=== PATIENT | male | born 1985 | race Caucasian/White ===

== ENCOUNTER 2019-12-03 06:36 | Inpatient (IN) | payer MEDICAID, OTHER ==
[~2019-12-03] VITALS: Ht 180.3 cm; Wt 112.1 kg
[2019-12-03] MEDS ORDERED: MORPHINE SULFATE 4 MG/ML CPJ (NOT FOR IM USE) IV STA (07:24)
[2019-12-03] MEDS ORDERED: SODIUM CHLORIDE 0.9% 1,000 ML IV ONE (07:24)
[2019-12-03] MEDS ORDERED: ONDANSETRON HCL 4MG/2ML INJ IV STA (07:24)
[2019-12-03] MEDS ORDERED: SODIUM CHLORIDE 0.9% 1000ML BAG (SEPSIS BOLUS) IV ONE (07:30)
[2019-12-03 07:44] LABS: HEMATOCRIT. 46.1 % (42.0-52.0); HEMOGLOBIN. 16.2 g/dL (14.0-18.0); MEAN CORPUSCULAR HEMOGLOBIN 28.9 pg (28.0-32.0); MEAN CORPUSCULAR VOLUME 82.4 fL (80.0-94.0); MEAN PLATELET VOLUME 8.6 fl (7.4-10.4); PLATELET 416 x1000/uL (130-400)
[2019-12-03 07:54] LABS: CHLORIDE 96 mEq/L (98-107)
[2019-12-03 07:54] LABS: CLARITY URINE TURBID (CLEAR); COLOR URINE ORANGE (YELLOW); KETONES URINE 1+ (NEGATIVE); LEUKOCYTE ESTERASE URINE 1+ (NEGATIVE); NITRITE URINE POSITIVE (NEGATIVE); OCCULT BLOOD URINE 1+ (NEGATIVE); PH URINE 5.5 (4.5-8.0); PROTEIN URINE 3+ (NEGATIVE); SPECIFIC GRAVITY URINE 1.038 (1.005-1.030)
[2019-12-03] MEDS ORDERED: PIPERACILLIN/TAZ 3.375G PREMIX 50 ML IV ONE (08:15)
[2019-12-03 08:34] LABS: PLATELET ESTIMATE SLIGHTLY INCREASED
[2019-12-03] MEDS ORDERED: POTASSIUM CHLORIDE 20MEQ TABLET SR PO ONE (09:00)
[2019-12-03 09:02] LABS: D-DIMER 2.22 mg/L FEU (<0.50); INR 1.1; PROTHROMBIN TIME 11.3 sec (9.6-11.0)
[2019-12-03] MEDS ORDERED: IOHEXOL-300 100 ML BOTTLE ONE (09:47)
[2019-12-03] MEDS ORDERED: PIPERACILLIN/TAZ 3.375G PREMIX 50 ML IV SCH (11:15)
[2019-12-03] MEDS ORDERED: DIPHENHYDRAMINE 50MG/ML VIAL IV PRN (11:15)
[2019-12-03] MEDS ORDERED: ONDANSETRON HCL 4MG/2ML INJ IV PRN (11:15)
[2019-12-03] MEDS ORDERED: CLONIDINE 0.1MG TABLET PO PRN (11:15)
[2019-12-03 11:35] LABS: PHOSPHORUS 1.6 mg/dL (2.5-4.9)
[2019-12-03] MEDS ORDERED: IPRATROPIUM/ALBUTEROL 0.5-3(2.5)MG/3ML NEB HHN PRN (12:00)
[2019-12-03] MEDS: SODIUM CHLORIDE 0.9% 1,000 ML IV SCH (14:25)
[2019-12-03] MEDS: MORPHINE SULFATE 2 MG/ML CPJ (NOT FOR IM USE) IV PRN (15:47)
[2019-12-03] MEDS ORDERED: PIPERACILLIN/TAZOBACTAM 3.375 G in DEXT 5% WATER 100 ML IV SCH (17:00)
[2019-12-03 21:30] VITALS: BP 129/67
[2019-12-04] VITALS: BP 139/86
[2019-12-04] MEDS: PIPERACILLIN/TAZOBACTAM 3.375 G in DEXT 5% WATER 100 ML IV SCH ×3 (02:25→17:17)
[2019-12-04 04:00] VITALS: BP 113/74
[2019-12-04 05:14] LABS: HEMATOCRIT. 38.3 % (42.0-52.0); HEMOGLOBIN. 13.2 g/dL (14.0-18.0); MEAN CORPUSCULAR HEMOGLOBIN 28.4 pg (28.0-32.0); MEAN CORPUSCULAR VOLUME 82.7 fL (80.0-94.0); MEAN PLATELET VOLUME 8.2 fl (7.4-10.4); PLATELET 337 x1000/uL (130-400); RED BLOOD CELL COUNT 4.63 mill/uL (4.7-6.1)
[2019-12-04] MEDS: ACETAMINOPHEN 325MG TABLET PO PRN ×2 (05:48→19:46)
[2019-12-04 06:13] LABS: CHLORIDE 101 mEq/L (98-107)
[2019-12-04 06:26] LABS: HDL CHOLESTEROL 10 mg/dL (40-59); LDL CHOLESTEROL 93 mg/dL (5-100)
[2019-12-04 08:00] VITALS: BP 114/72
[2019-12-04 14:25] LABS: PLATELET ESTIMATE NORMAL
[2019-12-04 16:00] VITALS: BP 122/77
[2019-12-04] MEDS: SODIUM CHLORIDE 0.9% 1,000 ML IV SCH ×2 (17:07→19:15)
[2019-12-04] MEDS ORDERED: KCL 20MEQ/100ML PREMIX 100 ML IV NR (18:30)
[2019-12-04 20:00] VITALS: BP 125/84
[2019-12-05] MEDS ORDERED: VANCOMYCIN 1500MG in DEXTROSE 5% WATER 250ML IV NR ×2
[2019-12-05] MEDS: FLUCONAZOLE 200 MG/100ML BAG 100 ML IV SCH ×2 (00:04→21:24)
[2019-12-05] MEDS: PIPERACILLIN/TAZOBACTAM 3.375 G in DEXT 5% WATER 100 ML IV SCH ×4 (00:05→18:01)
[2019-12-05] MEDS: MORPHINE SULFATE 2 MG/ML CPJ (NOT FOR IM USE) IV PRN (00:06)
[2019-12-05] MEDS ORDERED: DIATR MEGLU/DIATRIZOATE SOLN 30ML PO SCH (02:00)
[2019-12-05] MEDS: SODIUM CHLORIDE 0.9% 1,000 ML IV SCH ×3 (03:15→19:15)
[2019-12-05 04:00] VITALS: BP 112/68
[2019-12-05 06:10] LABS: HIV SCREEN 4G Non Reactive (Non Reactive)
[2019-12-05 06:11] LABS: BASOPHILS % 0.2 % (0.0-2.0); EOSINOPHILS % 0.9 % (0.0-5.0); HEMATOCRIT. 36.5 % (42.0-52.0); HEMOGLOBIN. 12.5 g/dL (14.0-18.0); LYMPHOCYTES % 7.8 % (20.0-50.0); MEAN CORPUSCULAR HEMOGLOBIN 28.5 pg (28.0-32.0); MEAN CORPUSCULAR VOLUME 83.2 fL (80.0-94.0); MEAN PLATELET VOLUME 7.8 fl (7.4-10.4); MONOCYTES % 12.1 % (2.0-8.0); PLATELET 323 x1000/uL (130-400); RED BLOOD CELL COUNT 4.38 mill/uL (4.7-6.1)
[2019-12-05 06:14] LABS: CHLORIDE 102 mEq/L (98-107)
[2019-12-05 06:20] LABS: PHOSPHORUS 2.3 mg/dL (2.5-4.9)
[2019-12-05 06:23] LABS: CREATINE KINASE 31 IU/L (39-308)
[2019-12-05] MEDS ORDERED: VANCOMYCIN 1,750 MG in DEXT 5% WATER 250 ML IV SCH (08:00)
[2019-12-05 08:16] VITALS: BP 108/63
[2019-12-05 12:00] VITALS: BP 135/74
[2019-12-05] MEDS: ACETAMINOPHEN 325MG TABLET PO PRN (14:32)
[2019-12-05] MEDS ORDERED: DIATR MEGLU/DIATRIZOATE SOLN 30ML PO NR (15:00)
[2019-12-05 16:00] VITALS: BP 129/64
[2019-12-05] MEDS ORDERED: POTASSIUM CHLORIDE INJ 40 MEQ in DEXT 5% WATER 250 ML IV SCH (17:00)
[2019-12-05] MEDS ORDERED: IOHEXOL-300 100 ML BOTTLE ONE (17:45)
[2019-12-05 20:00] VITALS: BP 137/86
[2019-12-05] MEDS: VANCOMYCIN 1500MG in DEXTROSE 5% WATER 250ML IV SCH (20:44)
[2019-12-05] MEDS: METRONIDAZOLE 500 MG PREMIX 100 ML IV SCH (23:28)
[2019-12-06] VITALS: BP 127/73
[2019-12-06] MEDS: PIPERACILLIN/TAZOBACTAM 3.375 G in DEXT 5% WATER 100 ML IV SCH ×5 (00:11→23:48)
[2019-12-06] MEDS: ACETAMINOPHEN 325MG TABLET PO PRN ×2 (00:50→05:05)
[2019-12-06] MEDS: SODIUM CHLORIDE 0.9% 1,000 ML IV SCH (03:20)
[2019-12-06 04:00] VITALS: BP 113/69
[2019-12-06] MEDS: METRONIDAZOLE 500 MG PREMIX 100 ML IV SCH ×3 (05:45→21:45)
[2019-12-06] MEDS ORDERED: SODIUM CHLORIDE 0.9% 1000ML BAG (SEPSIS BOLUS) IV NR (06:00)
[2019-12-06 06:06] LABS: CHLORIDE 105 mEq/L (98-107)
[2019-12-06 06:07] LABS: BASOPHILS % 0.3 % (0.0-2.0); EOSINOPHILS % 2.1 % (0.0-5.0); HEMATOCRIT. 38.9 % (42.0-52.0); HEMOGLOBIN. 13.5 g/dL (14.0-18.0); LYMPHOCYTES % 7.6 % (20.0-50.0); MEAN CORPUSCULAR HEMOGLOBIN 28.4 pg (28.0-32.0); MEAN CORPUSCULAR VOLUME 81.9 fL (80.0-94.0); MEAN PLATELET VOLUME 7.8 fl (7.4-10.4); MONOCYTES % 11.1 % (2.0-8.0); NEUTROPHILS % 78.9 % (40.0-76.0); PLATELET 444 x1000/uL (130-400); RED BLOOD CELL COUNT 4.75 mill/uL (4.7-6.1); RED CELL DISTRIBUTION WIDTH 14.7 % (11.6-14.6)
[2019-12-06] MEDS: VANCOMYCIN 1500MG in DEXTROSE 5% WATER 250ML IV SCH ×2 (06:32→15:24)
[2019-12-06 08:00] VITALS: BP 118/65
[2019-12-06] MEDS ORDERED: BUPIVACAINE HCL 0.5% (5MG/ML) 50ML ONE (09:44)
[2019-12-06] MEDS ORDERED: MORPHINE SULFATE 2 MG/ML CPJ (NOT FOR IM USE) IV PRN ×2 (10:15→12:30)
[2019-12-06] MEDS ORDERED: MORPHINE SULFATE 4 MG/ML CPJ (NOT FOR IM USE) IV PRN (10:15)
[2019-12-06] MEDS: ENOXAPARIN 30MG/0.3ML SYR SUBCUT SCH ×2 (10:30→20:40)
[2019-12-06] MEDS ORDERED: MIDAZOLAM HCL 2 MG/2 ML VIAL ONE (10:36)
[2019-12-06] MEDS ORDERED: PROPOFOL 200MG/20ML VIAL IV ONE (10:36)
[2019-12-06] MEDS ORDERED: FENTANYL CITRATE/PF 50MCG/ML 2ML VIAL ONE ×3 (10:36→12:03)
[2019-12-06] MEDS ORDERED: METOCLOPRAMIDE HCL 10MG/2ML VIAL ONE (10:37)
[2019-12-06] MEDS ORDERED: ALBUMIN HUMAN 12.5G/250ML (5%) IV ONE (10:37)
[2019-12-06] MEDS ORDERED: ONDANSETRON HCL 4MG/2ML INJ ONE (10:37)
[2019-12-06] MEDS ORDERED: GLYCOPYRROLATE 0.2 MG/ML 2ML VIAL ONE ×2 (10:37→12:16)
[2019-12-06] MEDS ORDERED: SUCCINYLCHOLINE CHLORIDE 200MG/10ML IV ONE (10:37)
[2019-12-06] MEDS ORDERED: LIDOCAINE HCL/PF 1% 10 MG/ML 5ML VIAL ONE (10:37)
[2019-12-06] MEDS ORDERED: ROCURONIUM BROMIDE 10MG/ML VIAL 5ML IV ONE ×2 (10:38→11:24)
[2019-12-06] MEDS ORDERED: HYDROMORPHONE HCL/PF 2MG/ML (OR) ONE (11:31)
[2019-12-06] MEDS ORDERED: NEOSTIGMINE METHYLSULFATE 1MG/ML 10 ML VIAL ONE (12:16)
[2019-12-06] MEDS ORDERED: SODIUM CHLORIDE 0.9% 1,000 ML IV ONE (12:27)
[2019-12-06] MEDS ORDERED: MEPERIDINE HCL/PF 25MG/ML CPJ IV PRN ×2 (12:30)
[2019-12-06] MEDS ORDERED: ONDANSETRON HCL 4MG/2ML INJ IV PRN (12:30)
[2019-12-06] MEDS ORDERED: ONDANSETRON INJ IV PRN (13:15)
[2019-12-06] MEDS ORDERED: DIPHENHYDRAMINE INJ IV PRN (13:15)
[2019-12-06] MEDS ORDERED: NALOXONE INJ IV PRN (13:15)
[2019-12-06] MEDS: HYDROMORPHONE HCL/PF 2MG/ML CPJ IV PRN ×3 (13:27→14:11)
[2019-12-06] MEDS: HYDROMORPHONE PCA 10MG/50ML IV PRN (13:30)
[2019-12-06 14:02] LABS: HEMOGLOBIN 13.5 g/dL (14.0-18.0); MEAN CORPUSCULAR HEMOGLOBIN 28.2 pg (28.0-32.0); MEAN CORPUSCULAR VOLUME 83.4 fL (80.0-94.0); PLATELET 549 x1000/uL (130-400); RED CELL DISTRIBUTION WIDTH 14.6 % (11.6-14.6)
[2019-12-06 14:09] LABS: CHLORIDE 107 mEq/L (98-107)
[2019-12-06 14:17] LABS: VANCOMYCIN TROUGH 11.1 ug/mL (5.0-10.0)
[2019-12-06 16:00] VITALS: BP 134/68
[2019-12-06] MEDS: DEXT 5%/0.45% NACL KCL 20MEQ/L 1,000 ML IV SCH ×2 (17:41→21:30)
[2019-12-06] MEDS ORDERED: POTASSIUM CHLORIDE INJ 40 MEQ in DEXT 5% WATER 250 ML IV NR ×2 (19:00→21:00)
[2019-12-06 20:00] VITALS: BP 123/73
[2019-12-06] MEDS: FLUCONAZOLE 200 MG/100ML BAG 100 ML IV SCH (20:40)
[2019-12-06] MEDS: VANCOMYCIN 2,000 MG in DEXT 5% WATER 500 ML IV SCH (22:05)
[2019-12-07 00:35] VITALS: BP 145/71
[2019-12-07 04:00] VITALS: BP 124/69
[2019-12-07] MEDS: VANCOMYCIN 2,000 MG in DEXT 5% WATER 500 ML IV SCH (06:35)
[2019-12-07] MEDS: PIPERACILLIN/TAZOBACTAM 3.375 G in DEXT 5% WATER 100 ML IV SCH ×3 (06:35→17:28)
[2019-12-07] MEDS: METRONIDAZOLE 500 MG PREMIX 100 ML IV SCH ×3 (06:35→21:03)
[2019-12-07 08:00] VITALS: BP 110/70
[2019-12-07] MEDS: DEXT 5%/0.45% NACL KCL 20MEQ/L 1,000 ML IV SCH (08:19)
[2019-12-07] MEDS: ENOXAPARIN 30MG/0.3ML SYR SUBCUT SCH ×2 (08:19→21:04)
[2019-12-07 10:57] LABS: HEMATOCRIT. 38.7 % (42.0-52.0); MEAN CORPUSCULAR HEMOGLOBIN 28.1 pg (28.0-32.0); MEAN CORPUSCULAR VOLUME 83.6 fL (80.0-94.0); MEAN PLATELET VOLUME 7.3 fl (7.4-10.4); PLATELET 473 x1000/uL (130-400); RED BLOOD CELL COUNT 4.63 mill/uL (4.7-6.1); RED CELL DISTRIBUTION WIDTH 14.9 % (11.6-14.6)
[2019-12-07 11:56] LABS: *AMPHETAMINES SCREEN URINE NEGATIVE (NEGATIVE); *BARBITURATES SCREEN URINE NEGATIVE (NEGATIVE); *BENZODIAZEPINES SCREEN URINE PRESUMTIVE POSITIVE (NEGATIVE); *COCAINE SCREEN URINE NEGATIVE (NEGATIVE); CANNABINOID URINE SCREEN NEGATIVE (NEGATIVE); METHADONE URINE SCREEN NEGATIVE (NEGATIVE); OPIATES URINE SCREEN PRESUMTIVE POSITIVE (NEGATIVE); PHENCYCLIDINE URINE SCREEN NEGATIVE (NEGATIVE)
[2019-12-07 12:00] VITALS: BP 122/70
[2019-12-07] MEDS: MICAFUNGIN 100 MG in SODIUM CHLORIDE 0.9% 100 ML IV SCH (13:50)
[2019-12-07 14:16] LABS: PLATELET ESTIMATE INCREASED
[2019-12-07] MEDS: DEXT 5%/0.9% NACL 1,000 ML IV SCH ×2 (14:50→21:04)
[2019-12-07 16:00] VITALS: BP 140/65
[2019-12-07 16:56] LABS: CLARITY URINE TURBID (CLEAR); COLOR URINE DARK YELLOW (YELLOW); KETONES URINE TRACE (NEGATIVE); LEUKOCYTE ESTERASE URINE 1+ (NEGATIVE); NITRITE URINE POSITIVE (NEGATIVE); OCCULT BLOOD URINE 2+ (NEGATIVE); PROTEIN URINE 2+ (NEGATIVE); SPECIFIC GRAVITY URINE 1.033 (1.005-1.030)
[2019-12-07 20:48] VITALS: BP 116/67
[2019-12-08] VITALS (8 sets, daily range): BP systolic 92–135; BP diastolic 49–92
[2019-12-08] MEDS: CEFEPIME 2,000 MG in DEXT 5% WATER 100 ML IV SCH (01:00)
[2019-12-08] MEDS: DEXT 5%/0.9% NACL 1,000 ML IV SCH ×3 (04:02→17:04)
[2019-12-08] MEDS: METRONIDAZOLE 500 MG PREMIX 100 ML IV SCH ×3 (05:39→21:42)
[2019-12-08 06:05] LABS: HEMATOCRIT. 30.5 % (42.0-52.0); HEMOGLOBIN. 10.3 g/dL (14.0-18.0); MEAN CORPUSCULAR HEMOGLOBIN 28.1 pg (28.0-32.0); MEAN CORPUSCULAR VOLUME 83.2 fL (80.0-94.0); MEAN PLATELET VOLUME 7.6 fl (7.4-10.4); PLATELET 392 x1000/uL (130-400); RED BLOOD CELL COUNT 3.66 mill/uL (4.7-6.1); RED CELL DISTRIBUTION WIDTH 14.6 % (11.6-14.6)
[2019-12-08 06:08] LABS: CHLORIDE 106 mEq/L (98-107)
[2019-12-08 06:14] LABS: PHOSPHORUS 4.7 mg/dL (2.5-4.9)
[2019-12-08 06:16] LABS: CREATINE KINASE 451 IU/L (39-308)
[2019-12-08] MEDS ORDERED: SODIUM CHLORIDE 0.9% 500 ML IV ONE (06:45)
[2019-12-08] MEDS ORDERED: SODIUM CHLORIDE 0.9% 500 ML IV SCH (07:00)
[2019-12-08] MEDS: HYDROMORPHONE PCA 10MG/50ML IV PRN (07:34)
[2019-12-08] MEDS: ENOXAPARIN 30MG/0.3ML SYR SUBCUT SCH (08:43)
[2019-12-08 11:02] LABS: NUCLEATED RED BLOOD CELLS 1 /100 WBC; PLATELET ESTIMATE NORMAL
[2019-12-08] MEDS: MICAFUNGIN 100 MG in SODIUM CHLORIDE 0.9% 100 ML IV SCH (14:00)
[2019-12-08] MEDS ORDERED: FUROSEMIDE 100MG/10ML VIAL IVP NR (18:00)
[2019-12-09] VITALS: BP 104/58
[2019-12-09 04:00] VITALS: BP 106/58
[2019-12-09] MEDS: METRONIDAZOLE 500 MG PREMIX 100 ML IV SCH ×3 (05:45→22:12)
[2019-12-09 07:47] LABS: HEMATOCRIT. 29.2 % (42.0-52.0); HEMOGLOBIN. 9.8 g/dL (14.0-18.0); MEAN CORPUSCULAR HEMOGLOBIN 28.1 pg (28.0-32.0); MEAN PLATELET VOLUME 7.5 fl (7.4-10.4); PLATELET 367 x1000/uL (130-400); RED BLOOD CELL COUNT 3.48 mill/uL (4.7-6.1)
[2019-12-09 07:53] LABS: PHOSPHORUS 5.3 mg/dL (2.5-4.9)
[2019-12-09] MEDS ORDERED: LIDOCAINE HCL 1% 20ML VIAL (Pyxis) INJ ONE (07:58)
[2019-12-09 08:00] VITALS: BP 112/67
[2019-12-09] MEDS: ENOXAPARIN 40MG/0.4ML SYR SUBCUT SCH (09:00)
[2019-12-09] MEDS ORDERED: HEPARIN 100 UNITS/1 ML VIAL IVF PRN (10:00)
[2019-12-09] MEDS: CEFEPIME 2,000 MG in DEXT 5% WATER 100 ML IV SCH (10:04)
[2019-12-09 12:00] VITALS: BP 117/65
[2019-12-09] MEDS: MICAFUNGIN 100 MG in SODIUM CHLORIDE 0.9% 100 ML IV SCH (13:53)
[2019-12-09 16:10] VITALS: BP 108/64
[2019-12-09 20:14] VITALS: BP 138/73
[2019-12-10] VITALS: BP 116/64
[2019-12-10 04:00] VITALS: BP 128/80
[2019-12-10] MEDS: METRONIDAZOLE 500 MG PREMIX 100 ML IV SCH ×3 (05:29→22:16)
[2019-12-10 07:00] LABS: BASOPHILS % 0.5 % (0.0-2.0); EOSINOPHILS % 3.8 % (0.0-5.0); HEMATOCRIT. 28.1 % (42.0-52.0); HEMOGLOBIN. 9.8 g/dL (14.0-18.0); LYMPHOCYTES % 9.8 % (20.0-50.0); MEAN CORPUSCULAR HEMOGLOBIN 29.1 pg (28.0-32.0); MEAN CORPUSCULAR VOLUME 83.9 fL (80.0-94.0); MEAN PLATELET VOLUME 7.3 fl (7.4-10.4); MONOCYTES % 9.7 % (2.0-8.0); NEUTROPHILS % 76.2 % (40.0-76.0); PLATELET 418 x1000/uL (130-400); RED BLOOD CELL COUNT 3.35 mill/uL (4.7-6.1); RED CELL DISTRIBUTION WIDTH 14.5 % (11.6-14.6)
[2019-12-10 08:00] VITALS: BP 128/72
[2019-12-10] MEDS: ENOXAPARIN 40MG/0.4ML SYR SUBCUT SCH (09:16)
[2019-12-10] MEDS: CEFEPIME 2,000 MG in DEXT 5% WATER 100 ML IV SCH (09:17)
[2019-12-10 10:08] LABS: PLATELET ESTIMATE NORMAL
[2019-12-10 12:00] VITALS: BP 140/86
[2019-12-10] MEDS: MICAFUNGIN 100 MG in SODIUM CHLORIDE 0.9% 100 ML IV SCH (12:29)
[2019-12-10 16:00] VITALS: BP 127/71
[2019-12-10] MEDS: CEFAZOLIN 2,000 MG in DEXT 5% WATER 100 ML IV SCH (16:54)
[2019-12-10 20:00] VITALS: BP 148/83
[2019-12-11 06:52] LABS: HEMATOCRIT. 27.1 % (42.0-52.0); HEMOGLOBIN. 9.4 g/dL (14.0-18.0); MEAN CORPUSCULAR HEMOGLOBIN 29.2 pg (28.0-32.0); MEAN CORPUSCULAR VOLUME 84.3 fL (80.0-94.0); MEAN PLATELET VOLUME 7.4 fl (7.4-10.4); PLATELET 407 x1000/uL (130-400); RED BLOOD CELL COUNT 3.21 mill/uL (4.7-6.1); RED CELL DISTRIBUTION WIDTH 14.6 % (11.6-14.6)
[2019-12-11 07:17] LABS: PHOSPHORUS 6.1 mg/dL (2.5-4.9)
[2019-12-11 08:00] VITALS: BP 142/79
[2019-12-11] MEDS: ENOXAPARIN 40MG/0.4ML SYR SUBCUT SCH (09:56)
[2019-12-11] MEDS: ONDANSETRON HCL 4MG/2ML INJ IV PRN (10:42)
[2019-12-11 11:14] LABS: PLATELET ESTIMATE SLIGHTLY INCREASED
[2019-12-11] MEDS ORDERED: HEPARIN SODIUM 1,000 UNIT/1ML VIAL IV SCH (11:45)
[2019-12-11 12:03] VITALS: BP 132/74
[2019-12-11] MEDS: MICAFUNGIN 100 MG in SODIUM CHLORIDE 0.9% 100 ML IV SCH (12:56)
[2019-12-11] MEDS ORDERED: HYDROCODONE/ACETAMINOPHEN 5/325MG TABLET PO PRN (13:30)
[2019-12-11] MEDS ORDERED: HYDROMORPHONE HCL/PF 2MG/ML CPJ IV PRN (13:30)
[2019-12-11 16:00] VITALS: BP 136/79
[2019-12-11] MEDS: CEFAZOLIN 2,000 MG in DEXT 5% WATER 100 ML IV SCH (18:02)
[2019-12-11 20:00] VITALS: BP 131/75
[2019-12-12] VITALS: BP 134/80
[2019-12-12 04:00] VITALS: BP 129/80
[2019-12-12 06:00] LABS: BASOPHILS % 0.5 % (0.0-2.0); EOSINOPHILS % 3.4 % (0.0-5.0); HEMATOCRIT. 26.4 % (42.0-52.0); HEMOGLOBIN. 9.2 g/dL (14.0-18.0); LYMPHOCYTES % 10.2 % (20.0-50.0); MEAN CORPUSCULAR HEMOGLOBIN 28.7 pg (28.0-32.0); MEAN CORPUSCULAR VOLUME 82.1 fL (80.0-94.0); MEAN PLATELET VOLUME 7.6 fl (7.4-10.4); NEUTROPHILS % 76.9 % (40.0-76.0); PLATELET 425 x1000/uL (130-400); RED BLOOD CELL COUNT 3.22 mill/uL (4.7-6.1); RED CELL DISTRIBUTION WIDTH 13.9 % (11.6-14.6)
[2019-12-12 08:00] VITALS: BP 119/75
[2019-12-12] MEDS: ENOXAPARIN 40MG/0.4ML SYR SUBCUT SCH (08:59)
[2019-12-12 12:24] VITALS: BP 131/82
[2019-12-12 15:55] VITALS: BP 126/74
[2019-12-12] MEDS: CEFAZOLIN 2,000 MG in DEXT 5% WATER 100 ML IV SCH (17:17)
[2019-12-12 19:57] VITALS: BP 136/71
[2019-12-13 00:46] VITALS: BP 141/78
[2019-12-13] MEDS: ONDANSETRON HCL 4MG/2ML INJ IV PRN (01:01)
[2019-12-13 04:00] VITALS: BP 135/74
[2019-12-13 06:16] LABS: BASOPHILS % 0.4 % (0.0-2.0); EOSINOPHILS % 3.7 % (0.0-5.0); HEMATOCRIT. 27.2 % (42.0-52.0); HEMOGLOBIN. 9.6 g/dL (14.0-18.0); LYMPHOCYTES % 12.1 % (20.0-50.0); MEAN CORPUSCULAR HEMOGLOBIN 28.9 pg (28.0-32.0); MEAN CORPUSCULAR VOLUME 81.9 fL (80.0-94.0); MEAN PLATELET VOLUME 7.6 fl (7.4-10.4); MONOCYTES % 9.8 % (2.0-8.0); PLATELET 435 x1000/uL (130-400); RED BLOOD CELL COUNT 3.32 mill/uL (4.7-6.1)
[2019-12-13 06:40] LABS: PHOSPHORUS 6.5 mg/dL (2.5-4.9)
[2019-12-13 07:04] LABS: HEPATITIS B SURFACE ANTIGEN NEGATIVE
[2019-12-13 07:34] LABS: HEPATITIS A AB IGM NEGATIVE (NEGATIVE)
[2019-12-13 08:00] VITALS: BP_SYST 130; BP_SYST 157; BP_DIAS 75; BP_DIAS 89
[2019-12-13 12:30] VITALS: BP 156/88
[2019-12-13] MEDS: ENOXAPARIN 40MG/0.4ML SYR SUBCUT SCH (14:56)
[2019-12-13] MEDS ORDERED: N IVF PRN (15:15)
[2019-12-13 20:00] VITALS: BP 139/82
[2019-12-13] MEDS: CEFAZOLIN 2,000 MG in DEXT 5% WATER 100 ML IV SCH (21:46)
[2019-12-14] VITALS (7 sets, daily range): BP systolic 123–142; BP diastolic 72–97
[2019-12-14] MEDS: ONDANSETRON HCL 4MG/2ML INJ IV PRN (05:10)
[2019-12-14 08:46] LABS: BASOPHILS % 0.6 % (0.0-2.0); HEMATOCRIT. 27.5 % (42.0-52.0); HEMOGLOBIN. 9.7 g/dL (14.0-18.0); LYMPHOCYTES % 13.9 % (20.0-50.0); MEAN PLATELET VOLUME 7.5 fl (7.4-10.4); MONOCYTES % 10.6 % (2.0-8.0); NEUTROPHILS % 70.9 % (40.0-76.0); PLATELET 463 x1000/uL (130-400); RED BLOOD CELL COUNT 3.35 mill/uL (4.7-6.1); RED CELL DISTRIBUTION WIDTH 14.1 % (11.6-14.6)
[2019-12-14 09:01] LABS: PHOSPHORUS 6.7 mg/dL (2.5-4.9)
[2019-12-14] MEDS: ENOXAPARIN 40MG/0.4ML SYR SUBCUT SCH (09:30)
[2019-12-14] MEDS ORDERED: CEFAZOLIN 2,000 MG in DEXT 5% WATER 100 ML IV SCH (21:00)
[2019-12-14] MEDS: ACETAMINOPHEN 325MG TABLET PO PRN (23:45)
[2019-12-15 04:00] VITALS: BP 126/70
[2019-12-15 06:55] LABS: BASOPHILS % 0.5 % (0.0-2.0); EOSINOPHILS % 4.4 % (0.0-5.0); HEMATOCRIT. 26.1 % (42.0-52.0); MEAN CORPUSCULAR HEMOGLOBIN 28.3 pg (28.0-32.0); MEAN CORPUSCULAR VOLUME 81.8 fL (80.0-94.0); MEAN PLATELET VOLUME 7.6 fl (7.4-10.4); MONOCYTES % 12.4 % (2.0-8.0); NEUTROPHILS % 66.7 % (40.0-76.0); PLATELET 456 x1000/uL (130-400); RED BLOOD CELL COUNT 3.19 mill/uL (4.7-6.1); RED CELL DISTRIBUTION WIDTH 13.7 % (11.6-14.6)
[2019-12-15 07:18] LABS: PHOSPHORUS 7.6 mg/dL (2.5-4.9)
[2019-12-15 08:00] VITALS: BP 137/80
[2019-12-15] MEDS: ENOXAPARIN 40MG/0.4ML SYR SUBCUT SCH (08:32)
[2019-12-15 12:00] VITALS: BP 139/81
[2019-12-15 16:00] VITALS: BP 139/79
[2019-12-15] MEDS: CEFAZOLIN 2,000 MG in DEXT 5% WATER 100 ML IV SCH (17:33)
[2019-12-15 20:00] VITALS: BP 128/73
[2019-12-16] VITALS: BP 129/71
[2019-12-16 04:00] VITALS: BP 117/64
[2019-12-16 07:42] LABS: EOSINOPHILS % 3.8 % (0.0-5.0); HEMATOCRIT. 29.2 % (42.0-52.0); HEMOGLOBIN. 10.3 g/dL (14.0-18.0); LYMPHOCYTES % 18.5 % (20.0-50.0); MEAN CORPUSCULAR HEMOGLOBIN 29.1 pg (28.0-32.0); MEAN CORPUSCULAR VOLUME 82.4 fL (80.0-94.0); MEAN PLATELET VOLUME 7.3 fl (7.4-10.4); MONOCYTES % 12.7 % (2.0-8.0); PLATELET 571 x1000/uL (130-400); RED BLOOD CELL COUNT 3.55 mill/uL (4.7-6.1); RED CELL DISTRIBUTION WIDTH 14.2 % (11.6-14.6)
[2019-12-16 08:00] VITALS: BP 122/73
[2019-12-16] MEDS: ENOXAPARIN 40MG/0.4ML SYR SUBCUT SCH (08:25)
[2019-12-16 12:00] VITALS: BP 127/69
[2019-12-16] MEDS: CEFAZOLIN 2,000 MG in DEXT 5% WATER 100 ML IV SCH (15:12)
[2019-12-16 16:00] VITALS: BP 112/76
[2019-12-16 20:00] VITALS: BP 124/67
[2019-12-17] VITALS: BP 131/72
[2019-12-17 04:00] VITALS: BP 127/79
[2019-12-17 07:12] LABS: BASOPHILS % 1.2 % (0.0-2.0); EOSINOPHILS % 3.7 % (0.0-5.0); HEMATOCRIT. 27.1 % (42.0-52.0); HEMOGLOBIN. 9.3 g/dL (14.0-18.0); LYMPHOCYTES % 19.1 % (20.0-50.0); MEAN CORPUSCULAR HEMOGLOBIN 28.3 pg (28.0-32.0); MEAN CORPUSCULAR VOLUME 82.6 fL (80.0-94.0); MEAN PLATELET VOLUME 7.3 fl (7.4-10.4); MONOCYTES % 11.2 % (2.0-8.0); NEUTROPHILS % 64.8 % (40.0-76.0); PLATELET 514 x1000/uL (130-400); RED BLOOD CELL COUNT 3.28 mill/uL (4.7-6.1); RED CELL DISTRIBUTION WIDTH 14.1 % (11.6-14.6)
[2019-12-17 07:56] LABS: PHOSPHORUS 7.4 mg/dL (2.5-4.9)
[2019-12-17 08:00] VITALS: BP 127/77
[2019-12-17] MEDS: ENOXAPARIN 40MG/0.4ML SYR SUBCUT SCH (08:35)
[2019-12-17 12:00] VITALS: BP 138/70
[2019-12-17] MEDS: CEFAZOLIN 2,000 MG in DEXT 5% WATER 100 ML IV SCH (15:06)
[2019-12-17 16:00] VITALS: BP 145/88
[2019-12-17 18:05] LABS: CLARITY URINE CLEAR (CLEAR); COLOR URINE YELLOW (YELLOW); KETONES URINE NEGATIVE (NEGATIVE); LEUKOCYTE ESTERASE URINE NEGATIVE (NEGATIVE); NITRITE URINE NEGATIVE (NEGATIVE); OCCULT BLOOD URINE 1+ (NEGATIVE); PH URINE 5.5 (4.5-8.0); PROTEIN URINE 1+ (NEGATIVE); SPECIFIC GRAVITY URINE 1.011 (1.005-1.030); UROBILINOGEN URINE 0.2 E.U./dL (0.2-1.0)
[2019-12-17] MEDS: SEVELAMER CARBONATE 800 MG TABLET PO SCH (18:24)
[2019-12-17 20:00] VITALS: BP 129/72
[2019-12-18] VITALS: BP 122/71
[2019-12-18 04:00] VITALS: BP 119/74
[2019-12-18 08:00] VITALS: BP 125/70
[2019-12-18] MEDS: SEVELAMER CARBONATE 800 MG TABLET PO SCH ×2 (09:40→18:02)
[2019-12-18] MEDS: ENOXAPARIN 40MG/0.4ML SYR SUBCUT SCH (09:41)
[2019-12-18 10:40] LABS: BASOPHILS % 0.9 % (0.0-2.0); EOSINOPHILS % 2.8 % (0.0-5.0); HEMATOCRIT. 28.3 % (42.0-52.0); HEMOGLOBIN. 9.9 g/dL (14.0-18.0); LYMPHOCYTES % 14.5 % (20.0-50.0); MEAN CORPUSCULAR HEMOGLOBIN 29.1 pg (28.0-32.0); MEAN CORPUSCULAR VOLUME 83.2 fL (80.0-94.0); MEAN PLATELET VOLUME 7.4 fl (7.4-10.4); MONOCYTES % 6.4 % (2.0-8.0); NEUTROPHILS % 75.4 % (40.0-76.0); PLATELET 506 x1000/uL (130-400); RED BLOOD CELL COUNT 3.41 mill/uL (4.7-6.1); RED CELL DISTRIBUTION WIDTH 14.5 % (11.6-14.6)
[2019-12-18 10:58] LABS: PHOSPHORUS 6.5 mg/dL (2.5-4.9)
[2019-12-18 12:00] VITALS: BP 116/70
[2019-12-18] MEDS ORDERED: HEPARIN SODIUM 1,000 UNIT/1ML VIAL IV NR (15:45)
[2019-12-18 16:00] VITALS: BP 133/82
[2019-12-18 20:00] VITALS: BP 124/88
[2019-12-19] VITALS (11 sets, daily range): BP systolic 117–125; BP diastolic 68–81
[2019-12-19 07:03] LABS: BASOPHILS % 1.7 % (0.0-2.0); EOSINOPHILS % 3.7 % (0.0-5.0); HEMATOCRIT. 28.3 % (42.0-52.0); LYMPHOCYTES % 21.6 % (20.0-50.0); MEAN CORPUSCULAR VOLUME 82.4 fL (80.0-94.0); MEAN PLATELET VOLUME 7.4 fl (7.4-10.4); MONOCYTES % 11.1 % (2.0-8.0); NEUTROPHILS % 61.9 % (40.0-76.0); PLATELET 484 x1000/uL (130-400); RED BLOOD CELL COUNT 3.44 mill/uL (4.7-6.1); RED CELL DISTRIBUTION WIDTH 14.2 % (11.6-14.6)
[2019-12-19] MEDS ORDERED: CEFAZOLIN 1000MG PREMIX 50 ML IV NR (07:15)
[2019-12-19 07:46] LABS: PHOSPHORUS 5.8 mg/dL (2.5-4.9)
[2019-12-19] MEDS: SEVELAMER CARBONATE 800 MG TABLET PO SCH ×3 (07:50→18:01)
[2019-12-19] MEDS ORDERED: SODIUM BICARBONATE 4% (2.4MEQ) 5ML VIAL IV ONE (09:23)
[2019-12-19] MEDS ORDERED: LIDOCAINE HCL 1% 20ML VIAL (Pyxis) INJ ONE (09:23)
[2019-12-19] MEDS ORDERED: LIDOCAINE HCL/EPINEPHRINE 1%-EPI 1:100,000 20 ML VIAL ONE (09:23)
[2019-12-19] MEDS ORDERED: CEFAZOLIN 1000MG PREMIX 50 ML IV ONE (09:31)
[2019-12-19] MEDS ORDERED: HEPARIN 1000 UNITS/ML 10ML ONE (10:01)
== END 2019-12-19 18:45 | disposition home health service (06) | DRG 710 ==
LOC: ER 06:36 → EDBEDREQTM 08:45 → 7WST 10:15 → EDBEDREQSVC 10:20 → EDBEDREQ 10:20 → ENRESERV 19:11 → 6WST 12-04 21:20 → 6EST 12-13 15:01
PROVIDERS: ADMIT Internal Medicine; ATTEND Internal Medicine
PROC: 0W9F0ZZ Drainage of Abdominal Wall, Open Approach (ICD-10-PCS; principal; 2019-12-06)
PROC: 0DNU0ZZ Release Omentum, Open Approach (ICD-10-PCS; 2019-12-06)
PROC: 0DSN0ZZ Reposition Sigmoid Colon, Open Approach (ICD-10-PCS; 2019-12-06)
PROC: 0DBN0ZZ Excision of Sigmoid Colon, Open Approach (ICD-10-PCS; 2019-12-06)
PROC: 0D1N0Z4 Bypass Sigmoid Colon to Cutaneous, Open Approach (ICD-10-PCS; 2019-12-06)
PROC: 02H633Z Insertion of Infusion Device into Right Atrium, Percutaneous Approach (ICD-10-PCS; 2019-12-09)
PROC: 5A1D70Z Performance of Urinary Filtration, Intermittent, Less than 6 Hours Per Day (ICD-10-PCS; 2019-12-09)
PROC: 5A1D70Z Performance of Urinary Filtration, Intermittent, Less than 6 Hours Per Day (ICD-10-PCS; 2019-12-11)
PROC: 5A1D70Z Performance of Urinary Filtration, Intermittent, Less than 6 Hours Per Day (ICD-10-PCS; 2019-12-13)
PROC: 5A1D70Z Performance of Urinary Filtration, Intermittent, Less than 6 Hours Per Day (ICD-10-PCS; 2019-12-15)
PROC: 5A1D70Z Performance of Urinary Filtration, Intermittent, Less than 6 Hours Per Day (ICD-10-PCS; 2019-12-18)
PROC: 02PYX3Z Removal of Infusion Device from Great Vessel, External Approach (ICD-10-PCS; 2019-12-19)
PROC: 0JH63XZ Insertion of Tunneled Vascular Access Device into Chest Subcutaneous Tissue and Fascia, Percutaneous Approach (ICD-10-PCS; 2019-12-19)
PROC: 02HV33Z Insertion of Infusion Device into Superior Vena Cava, Percutaneous Approach (ICD-10-PCS; 2019-12-19)
PROC: B518ZZA Fluoroscopy of Superior Vena Cava, Guidance (ICD-10-PCS; 2019-12-19)
PROC: 5A1D70Z Performance of Urinary Filtration, Intermittent, Less than 6 Hours Per Day (ICD-10-PCS; 2019-12-19)
DX: A41.9 Sepsis, unspecified organism (principal); K63.1 Perforation of intestine (nontraumatic); K65.1 Peritoneal abscess; N17.9 Acute kidney failure, unspecified; E66.01 Morbid (severe) obesity due to excess calories; E87.6 Hypokalemia; K42.9 Umbilical hernia without obstruction or gangrene; K52.9 Noninfective gastroenteritis and colitis, unspecified; N39.0 Urinary tract infection, site not specified; R65.20 Severe sepsis without septic shock; B19.20 Unspecified viral hepatitis C without hepatic coma; Z20.828 Contact with and (suspected) exposure to other viral communicable diseases; D64.9 Anemia, unspecified; Z90.49 Acquired absence of other specified parts of digestive tract; Z68.34 Body mass index [BMI] 34.0-34.9, adult; K57.20 Diverticulitis of large intestine with perforation and abscess without bleeding
CPT/HCPCS: 36415; 36558; 36589; 71045; 71260; 74176; 74177; 76937; 77001; 80048; 80053; 80061; 80202; 80305; 81003; 82105; 82550; 82962; 83036; 83605; 83735; 84100; 84134; 84145; 84443; 84484; 85025; 85027; 85379; 86705; 86709; 86803; 87070; 87075; 87077; 87186; 87340; 87389; 88307; 88329; 93005; 93970; 96374; 97116; 97162; 97530; 99291; C1750; C1752; C1769; J0330; J0690; J0692; J1170; J1450; J1644; J1650; J1940; J2248; J2250; J2270; J2405; J2543; J2704; J2710; J2765; J3010; J3370; J3480; J3490; J7030; J7042; J7050; J7060; P9041; Q9963; Q9967; U0003-CS